=== PATIENT | female | born 1945 | race Caucasian/White ===

== ENCOUNTER 2019-05-10 10:01 | Outpatient (REF) | payer MEDICARE, SELFPAY ==
[2019-05-10 12:54] LABS: ALT 41 U/L (12-78); AST 17 U/L (15-37); Albumin 3.9 g/dL (3.4-5.0); Alkaline Phosphatase 92 U/L (46-116); Anion Gap 9.2 mmol/L (3-11); BUN 20 mg/dL (7-18); Bilirubin, Total 0.6 mg/dL (0.2-1.0); CO2 29.8 mmol/L (21.0-32.0); CREATININE 0.87 mg/dL (0.55-1.02); Calcium 9.1 mg/dL (8.5-10.1); Calculated LDL 109 mg/dL; Chloride 105 mmol/L (98-107); Cholesterol 194 mg/dL (50-200); Glucose 97 mg/dL (70-100); HDL Cholesterol 59 mg/dL (40-60); Potassium 3.8 mmol/L (3.5-5.1); Sodium 144 mmol/L (136-145); TSH (W/Ref FT4) 1.08 uIU/mL (0.358-3.74); Total Protein 7.4 g/dL (6.4-8.2); Triglyceride 131 mg/dL (30-150)
== END 2019-05-10 10:21 ==
LOC: NCHCN 10:01
PROVIDERS: PCP Family Medicine; Visit Provider Family Medicine
DX: E78.5 Hyperlipidemia, unspecified (principal); I10 Essential (primary) hypertension; E03.9 Hypothyroidism, unspecified
CPT/HCPCS: 80053; 80061; 83721; 84443

== ENCOUNTER 2019-11-24 00:54 | Outpatient (CLI) | payer MEDICARE, OTHER, SELFPAY ==
--- NOTE | 2019-11-24 09:24 | DI.MAMMO_ITS ---
EXAM: MG MAMMO SCREENING CLINICAL HISTORY: SCREENING Z12.31. TECHNIQUE: Full field digital CC and MLO mammographic images were obtained with 3D tomosynthesis and utilizing computer aided detection (CAD). COMPARISON: 2009 to 2017 FINDINGS: Breast Density - Category A - Almost entirely fatty Masses/Architectural Distortion: None seen. Microcalcifications: No suspicious pleomorphic-type calcifications are seen. Skin Thickening/Nipple Retraction: None. Axilla: Unremarkable. IMPRESSION: 1. BI-RADS category 1, negative. No significant interval change with no specific features of maligna ncy noted. 2. Unless there is more urgent need, screening mammography is recommended, as per [employer] guidelines. BI-RADS Cat 1 - Negative Breast Density - Category A - Almost entirely fatty A negative radiographic report should not delay biopsy if a dominant or clinically suspicious mass is present. Up to ten percent of cancers are not identified on mammography. A negative report may reinforce clinical impression. Adenosis and dense breasts may obscure an underlying neoplasm. False positive reports average 6 to 10%. Patient will receive a letter notifying them of these results.
== END 2019-11-24 01:14 ==
PROVIDERS: PCP Family Medicine; Visit Provider Family Medicine
DX: Z12.31 Encounter for screening mammogram for malignant neoplasm of breast (principal)
CPT/HCPCS: 77063; 77067

== ENCOUNTER 2020-05-16 09:11 | Outpatient (REF) | payer MEDICARE, OTHER, SELFPAY ==
[2020-05-16 22:20] LABS: ALT 36 U/L (14-59); AST 26 U/L (15-37); Alkaline Phosphatase 80 U/L (46-116); Anion Gap 9.2 mmol/L (3-11); BUN 17 mg/dL (7-18); Bilirubin, Total 0.5 mg/dL (0.2-1.0); CO2 29.8 mmol/L (21.0-32.0); CREATININE 0.78 mg/dL (0.55-1.02); Calcium 9.4 mg/dL (8.5-10.1); Calculated LDL 121 mg/dL (<100); Chloride 103 mmol/L (98-107); Cholesterol 202 mg/dL (<200); Glucose 100 mg/dL (74-106); HDL Cholesterol 57 mg/dL (40-60); Potassium 3.5 mmol/L (3.5-5.1); Sodium 142 mmol/L (136-145); TSH (W/Ref FT4) 2.74 uIU/mL (0.36-3.74); Total Protein 7.1 g/dL (6.4-8.2); Triglyceride 120 mg/dL (<150)
== END 2020-05-16 09:31 ==
LOC: NCHCN 09:11
PROVIDERS: PCP Family Medicine; Visit Provider Family Medicine
DX: E78.5 Hyperlipidemia, unspecified (principal); I10 Essential (primary) hypertension; E03.9 Hypothyroidism, unspecified
CPT/HCPCS: 80053; 80061; 84443

== ENCOUNTER 2020-11-30 03:01 | Outpatient (CLI) | payer MEDICARE, OTHER, SELFPAY ==
--- NOTE | 2020-11-30 15:45 | DI.MAMMO_ITS ---
EXAM: MG MAMMO SCREENING CLINICAL HISTORY: SCREENING, Z12.31. TECHNIQUE: Bilateral full field digital CC and MLO mammographic images were obtained with 3D tomosyn thesis and utilizing computer aided detection (CAD). COMPARISON: Prior mammograms dating back to 2010, the most recent being November 2019. Significant f amily history. Her sister was diagnosed with breast cancer prior to age 50. FINDINGS: There are no CAD designations. There are no spiculated masses nor malignant appearing microcalcification groups. There is no signif icant architectural distortion nor skin thickening-retraction. IMPRESSION: No radiographic evidence of malignancy. BI-RADS Category 1 - Negative Breast Density - Category A - Almost entirely fatty Breast density Category C or D implies that the patient has dense breast tissue. Dense breast tissue can make it harder to find cancer on a mammogram. Dense breast tissue is also associated with an incr eased risk of breast cancer. This information about the result of the mammogram report was provided to the patient to raise their awareness. Use this report when you speak with the patient about their risks for breast cancer, which includes their family history. At that time, you may recommend additional screening tests (Ultrasoun d or MRI) as these tests may add significant information. A negative radiographic report should not delay biopsy if a dominant or clinically suspicious mass is present. Up to ten percent of cancers are not identified on mammography. A negative report may reinforce clinical impression. Adenosis and dense breasts may obscure an underlying neoplasm. False positive reports average 6 to 10%. Patient will receive a letter notifying them of these results.
== END 2020-11-30 03:21 ==
PROVIDERS: PCP Family Medicine; Visit Provider Family Medicine
DX: Z12.31 Encounter for screening mammogram for malignant neoplasm of breast (principal); Z80.3 Family history of malignant neoplasm of breast
CPT/HCPCS: 77063; 77067

== ENCOUNTER 2021-06-06 14:34 | Outpatient (REF) | payer MEDICARE, OTHER, SELFPAY ==
[2021-06-06 15:07] LABS: HCT 43.8 % (36.0-46.0); HGB 13.4 g/dL (11.2-15.7); MCH 27.7 pg (27.0-33.0); MCHC 30.6 % (32.0-36.0); MCV 90.5 fL (80-95); MPV 12.7 fL (8.0-11.0); Platelet Count 160 10^3/uL (130-400); RBC 4.84 10^6/uL (3.93-5.22); RDW 12.7 % (11.7-14.6); RDW-SD 41.5 fL; WBC 3.85 10^3/uL (4.4-10.8)
[2021-06-06 16:24] LABS: ALT 40 U/L (14-59); AST 29 U/L (15-37); Albumin 3.8 g/dL (3.4-5.0); Alkaline Phosphatase 76 U/L (46-116); Anion Gap 7.1 mmol/L (3-11); BUN 23 mg/dL (7-18); Bilirubin, Total 0.5 mg/dL (0.2-1.0); CO2 32.9 mmol/L (21.0-32.0); CREATININE 0.8 mg/dL (0.55-1.02); Calcium 9.4 mg/dL (8.5-10.1); Calculated LDL 107 mg/dL (<100); Chloride 105 mmol/L (98-107); Cholesterol 188 mg/dL (<200); Glucose 99 mg/dL (74-106); HDL Cholesterol 57 mg/dL (40-60); Potassium 3.4 mmol/L (3.5-5.1); Sodium 145 mmol/L (136-145); TSH (W/Ref FT4) 2.29 uIU/mL (0.36-3.74); Triglyceride 123 mg/dL (<150)
[2021-06-06 16:26] LABS: Vitamin D 25 Total 27.2 ng/mL (30-100)
== END 2021-06-06 14:35 | disposition home or self-care (01) ==
LOC: NCHCN 14:34
PROVIDERS: PCP Family Medicine; Visit Provider Family Medicine
DX: E55.9 Vitamin D deficiency, unspecified (principal); I10 Essential (primary) hypertension; E03.9 Hypothyroidism, unspecified; E78.5 Hyperlipidemia, unspecified
CPT/HCPCS: 80053; 80061; 82306; 85027; 84443

== ENCOUNTER 2022-01-21 00:19 | Outpatient (CLI) | payer MEDICARE, OTHER, SELFPAY ==
--- NOTE | 2022-01-21 09:00 | DI.MAMMO_ITS ---
Exam(s) MAMMO SCREENING EXAM: MAMMO SCREENING CLINICAL HISTORY: SCREENING, Z12.31 TECHNIQUE: Mammograms were interpreted according to the usual protocol including computer analysis w [employer] CAD system, tomosynthesis and C-view imaging. COMPARISON: 2011 through 2020 FINDINGS: The breasts are composed of mainly fatty density , Breast Density category A. No suspicious masses or suspicious microcalcifications are seen. No skin thickening or abnormal axillary lymph nodes are seen. There has been no significant change from prior exams. IMPRESSION: BI-RADS Category 1, Negative mammogram Yearly screening mammography is recommended. Breast Density - Category A, fatty density. A negative radiographic report should not delay biopsy if a dominant or clinically suspicious mass is present. Up to ten percent of cancers are not identified on mammography. A negative report may reinforce clinical impression. Adenosis and dense breasts may obscure an underlying neoplasm. False positive reports average 6 to 10%. Patient will receive a letter notifying them of these results.
== END 2022-01-21 00:39 ==
PROVIDERS: PCP Family Medicine; Visit Provider Family Medicine
DX: Z12.31 Encounter for screening mammogram for malignant neoplasm of breast (principal)
CPT/HCPCS: 77063; 77067

== ENCOUNTER 2022-07-17 10:17 | Outpatient (REF) | payer MEDICARE, SELFPAY ==
[2022-07-17 15:13] LABS: Calculated LDL 125 mg/dL (<100); Cholesterol 211 mg/dL (<200); HDL Cholesterol 62 mg/dL (40-60); TSH (W/Ref FT4) 1.94 uIU/mL (0.36-3.74); Triglyceride 121 mg/dL (<150)
== END 2022-07-17 10:18 | disposition home or self-care (01) ==
LOC: NCHCN 10:17
PROVIDERS: PCP Family Medicine; Visit Provider Family Medicine
DX: E03.9 Hypothyroidism, unspecified (principal); E55.9 Vitamin D deficiency, unspecified; E78.5 Hyperlipidemia, unspecified
CPT/HCPCS: 80061; 82306; 84443

== ENCOUNTER 2022-08-10 10:00 | Emergency (ER) | payer MEDICARE, SELFPAY ==
[2022-08-10 10:14] VITALS: BP 148/87; PULSE 68; RESP 16; TEMP 36.9; O2SAT 97
--- NOTE | 2022-08-10 13:30 | ED.GENADUL_ITS ---
Discharge Plan Disposition Patient Disposition: HOME Condition: Stable Discharge Details Clinical Impression: Retinal detachment, left Primary Care Provider: Yeni Ta ED Provider: Александр Manley Home Meds and New Rx's Prescriptions: Continued atorvastatin 20 MG tablet 20 mg PO DAILY sertraline 100 MG tablet 100 mg PO DAILY chlorthalidone 25 MG tablet 25 mg PO DAILY levothyroxine 75 MCG tablet 75 mcg PO DAILY calcium carbonate [Calcium 500] 500 MG tablet 500 mg PO cholecalciferol (vitamin D3) 1,000 UNIT capsule 1,000 unit PO DAILY potassium chloride [Klor-Con M20] 20 MEQ tablet,ER particles/crystals 20 meq PO BID Qty: 60 0RF Discharge Instructions Additional Instructions: On physical exam today it is highly suspicious given your symptoms that you have a retinal detachment. It is very important that you follow-up with [facility] tomorrow at 10 AM in the ophthalmology department in [facility]. 4B please arrive early to allow for plenty of time to find the correct office and to check in. If you develop any new or significant worsening of symptoms including severe headache, other neurological symptoms, or further concerns return immediately to the emergency department. Referrals: [facility] [Outside] - 08/11/22 10:00 am (Ophthalmology department) Discharge Data Discharge Date/Time-TO BE ENTERED AT DEPARTURE: 08/10/22 14:02 Medical Decision Making Patient presenting to the emergency department for chief complaint of eye vision change. She reports that yesterday evening around 7 PM he had a sudden change in her vision which she describes as vertigo-like with a lot of floaters. She states that she cannot see out of the eye out except for it appearing all white. Patient states mild pressure but denies severe pain headache or other neurological symptoms. Physical exam does show intact EOMs, normal pupillary response, loss of red light reflex to the left eye only, vision loss of left eye except for slight shadows that can be observed approximately 1 inch away from patient's eye. Chirag-Pen was used and patient has intraocular pressure of affected eye of 21 and of normal eye of 23. While visual acuity cannot be completed on left eye right eye was 2020. Exam is otherwise unremarkable. No acute signs of CVA or other focal neurological deficits. Bedside ultrasound was utilized and it appears like patient may have retinal detachment. Called [facility] and spoke with Dr Crouch for ophthalmology consult. After thorough discussion of case timeframe of symptoms, and physical exam findings he consulted with his attending and plan of care is for patient to be discharged with low precautions of return for any new or worsening symptoms otherwise patient to present to [facility] ophthalmology clinic tomorrow morning at 10 AM. Discussed this plan of care with patient which she is in agreement with. After discussion of diagnosis and plan of care patient has no further needs, questions, or concerns and states clear understanding to return to the emergency department for any worsening symptoms. This documentation was generated using Bigpointation system, please disregard any oddities of phrase or misspellings. HPI General Mode of arrival: ambulatory . Date/Time Provider Initiated Documentation: 08/10/22 10:20 . Limitations to Documentation: no limitations . Information obtained by: patient . History of Present Illness 76 year old F presents to the emergency department with the chief complaint of L eye vision loss, described as mild, with intensity rated at 3. Quality is described as other (pressure), and is localized to the eyes and left. Patient started experiencing this hour(s) (15) and it has been constant. No relieving factors improve symptom(s), No exacerbating factors reported . Patient notes no other symptoms.. Patient did receive the following treatments prior to arrival, none Related Data Home Medications Medication Instructions Recorded Confirmed atorvastatin 20 mg tablet 20 mg PO DAILY 02/14/14 08/10/22 calcium carbonate 500 mg calcium 500 mg PO 02/14/14 11/08/15 (1,250 mg) tablet (Calcium 500) chlorthalidone 25 mg tablet 25 mg PO DAILY 02/14/14 08/10/22 cholecalciferol (vitamin D3) 25 1,000 unit PO DAILY 02/14/14 08/10/22 mcg (1,000 unit) capsule levothyroxine 75 mcg tablet 75 mcg PO DAILY 02/14/14 08/10/22 sertraline 100 mg tablet 100 mg PO DAILY 02/14/14 08/10/22 potassium chloride 20 mEq 20 meq PO BID treat low potassium 11/11/15 08/10/22 tablet,extended ##60 release(part/cryst) (Cinthia Little) Previous Rx's Medication Instructions Recorded potassium chloride 20 mEq 20 meq PO BID treat low potassium 11/11/15 tablet,extended ##60 release(part/cryst) (Cinthia Little) Allergies Allergy/AdvReac Type Severity Reaction Status Date / Time No Known Drug Allergies Allergy Unverified 08/10/22 10:23 General Stated Complaint: EyeProblem JOLEEN: 2 Review of Systems Constitutional Constitutional: Denies chills, Denies fever(s) and Denies headache(s) Eyes Eyes: Reports as per HPI, Reports irritation, Reports loss of vision and Reports seeing flashes ENT Ears, Nose, Mouth, and Throat: Denies vertigo, Denies dizziness, Denies facial pain, Denies headache(s), Denies neck pain and Denies sinus pain Cardiovascular Cardiovascular: Denies syncope Gastrointestinal Gastrointestinal: Denies nausea and Denies vomiting Musculoskeletal Musculoskeletal: Denies neck pain Integumentary/Breasts Skin/Breast: Denies rash Neurologic Neurologic: Denies abnormal movements, Denies vertigo, Denies dizziness, Denies syncope, Denies headache(s), Denies localized weakness, Reports loss of vision and Denies paresthesias PFSH All Active Problems (Updated 08/10/22 @ 13:31 by Александр Manley NP) Left displaced femoral neck fracture (Acute) PAT (paroxysmal atrial tachycardia) (Acute) Hypokalemia (Acute) Deep vein thrombosis (DVT) prophylaxis prescribed at discharge (Acute) Retinal detachment, left (Acute) Social History Smoking/Tobacco Use Status: Former Tobacco Use Smoking risk assessment performed?: Yes Alcohol Intake: current Alcohol Intake frequency: a few times a month Alcohol type: beer, wine and hard liquor Drug use: Never Substance use type: does not use Do you feel safe at home: Yes Do you feel safe in your relationship?: Yes Exam Const General: cooperative, healthy appearing, no acute distress and well groomed Orientation: alert, awake and oriented x3 HENMT Head: normal to inspection Ears: hearing grossly normal bilaterally Eyes Visual Erazo: abnormal by confrontation complete loss of vision on the left Alignment and Position: alignment normal Periorbital: periorbital findings normal Eyelids: eyelids normal Conjunctivae: conjunctival abnormality left conjunctival injection Pupils: PERRL EOM: EOM intact bilaterally Direct ophthalmoscopy: decreased pupillary light reflex on the left Neck Neck: normal visual inspection, full ROM and no meningeal signs Resp Effort & Inspection: normal respiratory effort and able to speak in complete sentences Auscultation: clear to auscultation bilaterally Cardio Rate: regular rate Rhythm: regular rhythm Heart Sounds: S1 normal and S2 normal Neuro General: patient alert, patient awake, patient oriented x3, gait normal, tone normal, moves all extremities, normal light touch, pain and propioception, no fo marie motor deficits, CN's II-XI intact bilaterally (intact except for vision change/ loss left eye) and not confused Cognition: normal cognition Speech: speech normal Motor: muscle tone normal throughout and no movement abnormalities noted Sensory Exam: no sensory deficits noted Coordination: Does not sway with eyes open Course Vital Signs Vital signs: Vital Signs Temperature 36.9 C 08/10/22 10:14 Pulse 68 08/10/22 10:14 Respiratory Rate 16 08/10/22 10:14 Blood Pressure 148/87 H 08/10/22 10:14 Pulse Oximetry 97 08/10/22 10:14 Temperature 36.9 C 08/10/22 10:14 Temperature Source Tympanic 08/10/22 10:14 Pulse 68 08/10/22 10:14 Respiratory Rate 16 08/10/22 10:14 Respiratory Effort Non-Labored 08/10/22 10:21 Blood Pressure 148/87 H 08/10/22 10:14 Blood Pressure Position Sitting 08/10/22 10:14 Pulse Oximetry 97 08/10/22 10:14 Oxygen Delivery Method Room Air 08/10/22 10:14 Oxygen Flow Rate 0 08/10/22 10:14 Pain Level 5 08/10/22 10:14 PAWSS Have you Been Recently Intoxicated or Drunk Within the Last 30 days?: No Have you Ever Experienced Previous Episodes of Alcohol Withdrawal?: No Have you ever Experienced Withdrawal Seizures?: No Have you ever Experienced Delirium Tremens(DT)s?: No Have you ever undergone Alcohol Rehabilitation Treatment (i.e, inpt ot outpatient treatment programs)?: No Have you ever Experienced Blackouts?: No Have you ever Combined Alcohol with other Downers within the last 90 days?: No Have you ever Combined Alcohol with any other Substance of Abuse during the last 90 days?: No Positive Blood Alcohol level on Presentation? [PCS.BAL]: No Evidence of Increased Autonomic Activity (i.e. HR>120, tremor, sweating, agitation, nausea)?: No Result: 0
== END 2022-08-10 14:02 | disposition home or self-care (01) ==
PROVIDERS: Emergency Provider Nurse Practitioner Family; PCP Family Medicine
DX: H33.22 Serous retinal detachment, left eye (principal); Z87.891 Personal history of nicotine dependence
CPT/HCPCS: 99284; 99282

== ENCOUNTER 2023-07-21 09:20 | Outpatient (REF) | payer MEDICARE, SELFPAY ==
[2023-07-21 18:08] LABS: Alkaline Phosphatase 86 U/L (46-116); BUN 20 mg/dL (7-18); Bilirubin, Total 0.7 mg/dL (0.2-1.0); CREATININE 0.8 mg/dL (0.55-1.02); Calcium 9.5 mg/dL (8.5-10.1); Chloride 103 mmol/L (98-107); Estimated GFR 76.79 (mL/min/1.73m2); Glucose 104 mg/dL (74-106); Potassium 4.1 mmol/L (3.5-5.1); Sodium 143 mmol/L (136-145); Total Protein 7.5 g/dL (6.4-8.2)
[2023-07-21 18:09] LABS: ALT 45 U/L (14-59); AST 31 U/L (15-37)
[2023-07-21 19:12] LABS: Vitamin D 25 Total 41.5 ng/mL (30-100)
== END 2023-07-21 09:21 | disposition home or self-care (01) ==
LOC: NCHCN 09:20
PROVIDERS: PCP Family Medicine; Visit Provider Family Medicine
DX: I10 Essential (primary) hypertension (principal); E55.9 Vitamin D deficiency, unspecified; E03.9 Hypothyroidism, unspecified; E78.5 Hyperlipidemia, unspecified
CPT/HCPCS: 80053; 82306

== ENCOUNTER → 2023-08-19 00:46 | Outpatient (CLI) | payer MEDICARE, SELFPAY ==
--- NOTE | 2023-08-19 | DI.MAMMO_ITS ---
Exam(s) MAMMO SCREENING EXAM: MAMMO SCREENING CLINICAL HISTORY: SCREENING MAMMO Z12.31 TECHNIQUE: Mammograms were interpreted according to the usual protocol including computer analysis w [employer] CAD system, tomosynthesis and C-view imaging. COMPARISON: 2013 through 2021 FINDINGS: The breasts are composed of mainly fatty density , Breast Density category A. No suspicious masses or suspicious microcalcifications are seen. No skin thickening or abnormal axillary lymph nodes are seen. There has been no significant change from prior exams. IMPRESSION: BI-RADS Category 1, Negative mammogram Yearly screening mammography is recommended. Breast Density - Category A, fatty density. A negative radiographic report should not delay biopsy if a dominant or clinically suspicious mass is present. Up to ten percent of cancers are not identified on mammography. A negative report may reinforce clinical impression. Adenosis and dense breasts may obscure an underlying neoplasm. False positive reports average 6 to 10%. Patient will receive a letter notifying them of these results.
== END ==
PROVIDERS: PCP Family Medicine; Visit Provider Family Medicine
DX: Z12.31 Encounter for screening mammogram for malignant neoplasm of breast (principal)
CPT/HCPCS: 77063; 77067

== ENCOUNTER 2023-11-06 16:14 | Outpatient (REF) | payer MEDICARE, SELFPAY ==
[2023-11-06 15:01] LABS: TSH (W/Ref FT4) 1.75 uIU/mL (0.36-3.74)
== END 2023-11-06 16:15 | disposition home or self-care (01) ==
LOC: LBN 16:14
PROVIDERS: PCP Family Medicine; Visit Provider Family Medicine
DX: E03.9 Hypothyroidism, unspecified (principal)
CPT/HCPCS: 84443

== ENCOUNTER 2024-06-22 14:25 | Emergency (ER) | payer MEDICARE, SELFPAY ==
[2024-06-22 14:31] VITALS: BP 181/90; PULSE 88; RESP 14; TEMP 36.4; O2SAT 97
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
[2024-06-22] MEDS: Silver sulfaDIAZINE 1% 25 GM TUBE TP (16:08)
== END 2024-06-22 15:48 | disposition home or self-care (01) ==
PROVIDERS: Emergency Provider Emergency Medicine; PCP Family Medicine
DX: X12.XXXA Contact with other hot fluids, initial encounter; T21.11XA Burn of first degree of chest wall, initial encounter; T31.0 Burns involving less than 10% of body surface; T21.12XA Burn of first degree of abdominal wall, initial encounter
CPT/HCPCS: 99283

== ENCOUNTER 2024-06-24 12:33 | Emergency (ER) | payer MEDICARE, SELFPAY ==
[2024-06-24 12:42] VITALS: BP 139/73; PULSE 69; RESP 16; TEMP 36.1; O2SAT 98
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
[2024-06-24 15:32] VITALS: BP 139/73; PULSE 69; RESP 16; TEMP 36.1; O2SAT 98
== END 2024-06-24 15:02 | disposition home or self-care (01) ==
PROVIDERS: Emergency Provider Emergency Medicine; PCP Family Medicine
DX: G89.11 Acute pain due to trauma; X12.XXXA Contact with other hot fluids, initial encounter; T21.12XA Burn of first degree of abdominal wall, initial encounter
CPT/HCPCS: 99281; 99283; 99282

== ENCOUNTER 2024-07-21 21:14 | Outpatient (REF) | payer MEDICARE, SELFPAY ==
[2024-07-21 15:42] LABS: ALT 46 U/L (14-59); AST 36 U/L (15-37); Alkaline Phosphatase 80 U/L (46-116); Anion Gap 4.1 mmol/L (3-11); BUN 21 mg/dL (7-18); Bilirubin, Total 0.66 mg/dL (0.2-1.0); CO2 32.9 mmol/L (21.0-32.0); CREATININE 0.8 mg/dL (0.55-1.02); Calcium 9.4 mg/dL (8.5-10.1); Calculated LDL 124 mg/dL (<100); Chloride 103 mmol/L (98-107); Cholesterol 214 mg/dL (<200); Estimated GFR 76.31 (mL/min/1.73m2); Glucose 99 mg/dL (74-106); HDL Cholesterol 65 mg/dL (40-60); Potassium 4.3 mmol/L (3.5-5.1); Sodium 140 mmol/L (136-145); Total Protein 7.3 g/dL (6.4-8.2); Triglyceride 125 mg/dL (<150); Vitamin D 25 Total 44.1 ng/mL (30-100)
== END 2024-07-21 21:15 | disposition home or self-care (01) ==
LOC: NCHCN 21:14
PROVIDERS: PCP Family Medicine; Visit Provider Family Medicine
DX: I10 Essential (primary) hypertension (principal); E55.9 Vitamin D deficiency, unspecified
CPT/HCPCS: 80053; 80061; 82306; 84443

== ENCOUNTER 2024-11-16 13:04 | Outpatient (REF) | payer MEDICARE, SELFPAY | END 2024-11-16 13:05 | disposition home or self-care (01) | LOC: NCHCN 13:04 | PROVIDERS: PCP Family Medicine; Visit Provider Family Medicine | DX: Z00.00 Encounter for general adult medical examination without abnormal findings (principal) | CPT/HCPCS: 83036 ==

== ENCOUNTER 2025-08-03 17:50 | Outpatient (REF) | payer MEDICARE, SELFPAY ==
[2025-08-03 15:16] LABS: HCT 43.4 % (36.0-46.0); HGB 13.8 g/dL (11.2-15.7); MCH 28.6 pg (27.0-33.0); MCHC 31.8 % (32.0-36.0); MCV 90 fL (80-95); MPV 12.6 fL (8.0-11.0); Platelet Count 180 10^3/uL (130-400); RBC 4.83 10^6/uL (3.93-5.22); RDW 12.9 % (11.7-14.6); RDW-SD 42.3 fL; WBC 4.97 10^3/uL (4.4-10.8)
[2025-08-03 15:58] LABS: ALT 37 U/L (14-59); AST 32 U/L (15-37); Albumin 4.1 g/dL (3.4-5.0); Alkaline Phosphatase 112 U/L (46-116); Anion Gap 7.0 mmol/L (3-11); BUN 20 mg/dL (7-18); Bilirubin, Total 0.7 mg/dL (0.2-1.0); CO2 34.0 mmol/L (21.0-32.0); Calcium 9.2 mg/dL (8.5-10.1); Calculated LDL 130 mg/dL (<100); Chloride 102 mmol/L (98-107); Cholesterol 216 mg/dL (<200); Estimated GFR 89.02 (mL/min/1.73m2); Glucose 98 mg/dL (74-106); HDL Cholesterol 60 mg/dL (>or=50); Potassium 3.6 mmol/L (3.5-5.1); Sodium 143 mmol/L (136-145); Total Protein 7.3 g/dL (6.4-8.2); Triglyceride 134 mg/dL (<150); Vitamin D 25 Total 50 ng/mL (30-100)
== END 2025-08-03 17:51 | disposition home or self-care (01) ==
LOC: NCHCN 17:50
PROVIDERS: PCP Family Medicine; Visit Provider Family Medicine
DX: E55.9 Vitamin D deficiency, unspecified (principal); I10 Essential (primary) hypertension; E78.5 Hyperlipidemia, unspecified; Z00.00 Encounter for general adult medical examination without abnormal findings
CPT/HCPCS: 80053; 80061; 82306; 85027

== ENCOUNTER 2025-08-17 04:26 | Outpatient (CLI) | payer MEDICARE, SELFPAY ==
--- NOTE | 2025-08-17 09:30 | DI.MAMMO_ITS ---
Exam(s) MAMMO SCREENING EXAM: MAMMO SCREENING CLINICAL HISTORY: WELL ADULT EXAM, Z00.00, SCREENING, Z12.31 TECHNIQUE: Bilateral full field digital CC and MLO mammographic images were obtained with 3D tomosynthesis and utilizing computer aided detection (CAD). COMPARISON: Comparison is made with prior examinations. FINDINGS: Masses/Architectural Distortion: No suspicious masses or areas of architectural distortion are present. Microcalcifications: No suspicious pleomorphic-type are seen. Skin Thickening/Nipple Retraction: None. IMPRESSION: 1. No significant interval change with no specific features of malignancy noted. 2. Unless there is more urgent need, screening mammography is recommended, as per [employer] guidelines. BI-RADS Category 1 - Negative Breast Density - Category A - The breast are almost entirely fatty. Breast density Category C or D implies that the patient has dense breast tissue. Dense breast tissue can make it harder to find cancer on a mammogram. Dense breast tissue is also associated with an increased risk of breast cancer. This information about the result of the mammogram report was provided to the patient to raise their awareness. Use this report when you speak with the patient about their risks for breast cancer, which includes their family history. At that time, you may recommend additional screening tests (Ultrasound or MRI) as these tests may add significant information. A negative radiographic report should not delay biopsy if a dominant or clinically suspicious mass is present. Up to ten percent of cancers are not identified on mammography. A negative report may reinforce clinical impression. Adenosis and dense breasts may obscure an underlying neoplasm. False positive reports average 6 to 10%. Patient will receive a letter notifying them of these results.
== END 2025-08-17 04:46 ==
PROVIDERS: PCP Family Medicine; Visit Provider Family Medicine
DX: Z00.00 Encounter for general adult medical examination without abnormal findings (principal); Z12.31 Encounter for screening mammogram for malignant neoplasm of breast
CPT/HCPCS: 77063; 77067